=== PATIENT | female | born 1955 | race Caucasian/White ===

== ENCOUNTER 2022-08-17 01:38 | Emergency (ER) | payer BC ==
[~2022-08-17] VITALS: Ht 149.9 cm; Wt 59.1 kg
[2022-08-17 01:57] VITALS: BP 180/88
--- NOTE | 2022-08-17 02:25 | NUR ---
pt nauseated, in pain, MD made aware. Warm blanket and emesis bag given.
[2022-08-17] MEDS ORDERED: morphine 10mg/ml inj. IM ONE (02:35)
[2022-08-17 03:21] LABS: CLARITY,URINE CLEAR (Clear); COLOR,URINE STRAW (Yellow); GLUCOSE, URINE NEGATIVE (Neg); KETONES,URINE NEGATIVE (Neg); LEUKOCYTE ESTERASE ,URINE SMALL (Neg); NITRITES, URINE NEGATIVE (Neg); OCCULT BLOOD,URINE TRACE-INTACT (Neg); PROTEIN,URINE NEGATIVE (Neg); UROBILINOGEN,URINE 0.2 E.U/dL (0.2-1.0)
[2022-08-17 03:25] LABS: UA COLLECTION TYPE CLN CATCH MIDSTREAM
[2022-08-17 03:26] LABS: SQUAMOUS EPITHELIAL CELL,UR MANY /LPF (FEW)
[2022-08-17 03:27] LABS: COARSE GRANULAR CAST 0-3 /LPF (NEGATIVE)
[2022-08-17 03:28] LABS: BACTERIA,URINE FEW /HPF (Neg); TRANSITIONAL EPI CELLS,URINE FEW /HPF; WBC CLUMPS,URINE FEW /HPF (NEGATIVE)
[2022-08-17] MEDS ORDERED: HYDR-3972 PO (06:09)
[2022-08-17] MEDS ORDERED: NAPR-56 PO (06:09)
[2022-08-17] MEDS ORDERED: CYCL-1 PO (06:25)
== END 2022-08-17 07:11 | disposition home or self-care (01) ==
LOC: ER 01:40
DX: S00-T88 Injury, poisoning and certain other consequences of external causes (principal); E78.00 Pure hypercholesterolemia, unspecified; I10 Essential (primary) hypertension; E03.9 Hypothyroidism, unspecified; Z79.899 Other long term (current) drug therapy; X58.XXXA Exposure to other specified factors, initial encounter; Y93.89 Activity, other specified; Y92.89 Other specified places as the place of occurrence of the external cause; Y99.8 Other external cause status
CPT/HCPCS: 72131; 74176; 81001; 96372; 99285; J2274